=== PATIENT | male | born 1990 | race Two or more races ===

== ENCOUNTER 2023-12-28 22:04 | Emergency (ER) | payer MEDICAID, SELFPAY ==
--- NOTE | 2023-12-28 22:09 | EKG_ITS ---
[facility] Test Date: 2023-12-28 Pat Name: KARLENE WOOD Department: Room: - Gender: Male [employer]culating Process Inspector: : 1990 Requested By: Miguel Parra Order Number: [id number] Reading MD: Miguel Parra Measurements Intervals [place] Rate: 74 P: 33 DC: 194 QRS: -19 QRSD: 106 T: 17 QT: 363 QTc: 403 Interpretive Statements SINUS RHYTHM WITH SINUS ARRHYTHMIA No previous ECG available for comparison /[id number].pdf
[2023-12-28 22:38] VITALS: BP 135/72; PULSE 74; RESP 19; TEMP 36.4; O2SAT 97; BMI 29.5
--- NOTE | 2023-12-28 23:08 | XR_ITS ---
Examination: PA chest single view Technique: Upright PA chest single view Exam date and time: December 28, 2023 11:20 PM Indications: Onset chest pain today. Findings: Normal heart size Minor subsegmental atelectasis at the lung bases No pneumonia or pulmonary edema Impression: No pneumonia or pulmonary edema
--- NOTE | 2023-12-28 23:08 | PD.EDRME ---
Rapid Medical Screening Exam E Arrival date/time: 12/28/23 22:04 33M with history of alcohol abuse (today, too) presents to ED with lower chest/epigastric pain. Chief Complaint: General Adult/Misc Complain Vital signs: Vital Signs Temperature 97.6 F 12/28/23 22:38 Pulse Rate 74 12/28/23 22:38 Respiratory Rate 19 12/28/23 22:38 Blood Pressure 135/72 H 12/28/23 22:38 Pulse Oximetry (%) 97 12/28/23 22:38 Oxygen Delivery Method Room Air 12/28/23 22:38
[2023-12-29 00:01] LABS: Basophils # (Auto) 0.1 Thou/mm3 (0.0-0.2); Basophils % (Auto) 1 % (0-2.5); Eosinophils # (Auto) 0.2 Thou/mm3 (0.0-0.5); Eosinophils % (Auto) 3 % (0-10); Hematocrit 42.4 % (41.0-53.0); Hemoglobin 14.4 g/dL (13.5-16.0); Immature Granulocytes % (Auto) 0 % (0-0); Immature Granulocytes Auto 0.03 Thou/mm3 (0.00-0.00); Lymphocytes # (Auto) 2.1 Thou/mm3 (1.0-4.8); Lymphocytes % (Auto) 29 % (10-50); Mean Corpuscular Hemoglobin 32.2 pg (25.0-35.0); Mean Corpuscular Volume 95 fL (80-100); Monocytes # (Auto) 0.5 Thou/mm3 (0.0-0.8); Monocytes % (Auto) 8 % (0-12); Neutrophils # (Auto) 4.3 Thou/mm3 (1.8-7.7); Neutrophils % (Auto) 59 % (37-80); Nucleated Red Blood Cell % 0 /100 WBC (0); Platelet Count 195 Thou/mm3 (140-440); RDW Standard Deviation 44.6 fL (35.1-43.9); Red Blood Count 4.47 Miln/mm3 (4.50-5.90); White Blood Count 7.2 Thou/mm3 (3.8-10.6)
[2023-12-29 00:34] LABS: Alanine Aminotransferase 319 U/L (10-49); Albumin, Serum 4.6 gm/dL (3.5-5.0); Albumin/Globulin Ratio 1.3 (1.2-2.2); Alcohol, Blood Medical 259.9 mg/dL (0-10.0); Alkaline Phosphatase 159 U/L (46-116); Anion Gap 8 (7-16); Aspartate Amino Transferase 196 U/L (0-34); BUN/Creatinine Ratio 10 Ratio (12-20); Bilirubin,Total 0.3 mg/dL (0.3-1.2); Blood Urea Nitrogen 8 mg/dL (9-23); Calcium 9.1 mg/dL (8.3-10.6); Calcium (Corrected) 9.1 mg/dL (8.5-10.1); Carbon Dioxide 25.7 mMol/L (20.0-31.0); Chloride 107 mMol/L (98-107); Creatinine (Component) 0.8 mg/dL (0.6-1.3); Globulin 3.5 gm/dL (2.3-3.5); Glucose 104 mg/dL (74-106); Lipase 45 U/L (12-53); Osmolality,Calculated 279 (275-295); Potassium 3.6 mMol/L (3.4-5.1); Sodium 141 mMol/L (136-145); Total Protein 8.1 gm/dL (5.7-8.2); Troponin I < 0.020 ng/mL (0.0-0.045); eGFR > 60 See Note
[2023-12-29 00:52] VITALS: BP 127/84; PULSE 74; RESP 18; TEMP 36.5
[2023-12-29 02:03] VITALS: BP 136/79; PULSE 70; RESP 18; TEMP 36.8; O2SAT 96
--- NOTE | 2023-12-29 03:05 | PD.EDADULT ---
ED General RME/HPI General Chief complaint: General Adult/Misc Complain Stated complaint: CHEST AREA PAIN,SOB,ETOH Arrival date/time: 12/28/23 22:04 Limitations: no limitations RME / HPI RME / HPI narrative: 12/28/23 22:04 33M with history of alcohol abuse (today, too) presents to ED with lower chest/epigastric pain. ---- Dr. Brenner's Main ED Evaluation: 33yo male with a history of alcohol abuse presents to the ED for a chief complaint of chest pain x 2 months. Patient is unable to describe his pain, reporting he's had it for the last 2 months, but rates it a 10 out of 10 in severity. Patient reports consuming alcohol tonight, but does not quantify how much. Denies any shortness of breath or any other associated symptoms. Denies any falls or injuries. No known allergies. Related Data Allergies Allergy/AdvReac Type Severity Reaction Status Date / Time No Known Allergies Allergy Verified 12/28/23 22:07 Review of Systems Review of Systems Systems Reviewed: All systems reviewed, normal except as documented Past Medical History Past Medical History CARDIAC: Negative Congestive Heart Failure RESPIRATORY: Negative Chronic Obstructive Pulmonary Disease (COPD) GENITOURINARY: Negative Renal Disease ENDOCRINE: Negative Diabetes Mellitus Type 1 or Diabetes Mellitus Type 2 Social History SMOKING STATUS: Never smoker ED Exam General Limitations: Present no limitations General appearance: Present alert, in no apparent distress and appears intoxicated Head Head exam: Present atraumatic Eye Eye exam: Present normal appearance, PERRL and EOMI ENT ENT exam: Present normal exam, normal oropharynx and mucous membranes moist Neck Neck exam: Present normal inspection, full ROM and trachea midline Chest Chest inspection: Present normal inspection and symmetric chest wall rise Respiratory Respiratory exam: Present normal lung sounds bilaterally Cardiovascular Cardiovascular exam: Present regular rate, normal rhythm and normal heart sounds Abdominal Exam Abdominal exam: Present soft and normal bowel sounds Extremities Exam Extremities exam: Present normal inspection and full ROM Back Exam Back exam: Present normal inspection and full ROM Neurological Exam Neurological exam: Present alert, oriented X3 and CN II-XII intact Psychiatric Psychiatric exam: Present normal affect and normal mood Skin Skin exam: Present warm, dry, intact and normal color Course Course Course Narrative: CXR is ordered for determining the etiology of chest pain. Quality Measures none Orders Category Date Time Status EKG (ED ONLY) *Do not use* NOW Care 12/28/23 22:09 Completed EKG (ED Only) Stat Exams 12/28/23 22:09 Draft XR chest 1V portable Stat Exams 12/28/23 23:08 Completed Alcohol, Blood Medical Stat Lab 12/28/23 23:34 Completed CBC Stat Lab 12/28/23 23:34 Completed Comprehensive Metabolic Panel Stat Lab 12/28/23 23:34 Completed Lipase Stat Lab 12/28/23 23:34 Completed Troponin I Stat Lab 12/28/23 23:34 Completed Vital Signs Vital signs: Vital Signs Temperature 97.6 F 12/28/23 22:38 Pulse Rate 74 12/28/23 22:38 Respiratory Rate 19 12/28/23 22:38 Blood Pressure 135/72 H 12/28/23 22:38 Pulse Oximetry (%) 97 12/28/23 22:38 Oxygen Delivery Method Room Air 12/28/23 22:38 Pulse ox is 97% on room air, which is normal according to my interpretation. [facility] Patient data External records reviewed:: [facility] previous records (Per chart review, patient has no previous ED visits or admissions to this facility.) Clinical information provided by:: patient Social determinants that could affect healthcare access:: alcohol use Patient has the following chronic illnesses:: none How is presenting disease/condition affected by chronic disease/condition?: no chronic disease Evaluation data The following diagnostics were reviewed and interpreted by me:: lab results, radiology exam(s) and EKG tracing(s) Lab and/or radiology exams considered but not ordered:: none Interpretation Summary: CBC is normal, LFTs are elevated, troponin is normal, Blood alcohol is elevated at 259.9, according to my interpretation. EKG done at 2236, NSR, rate of 74, normal intervals, normal axis, no acute ST or T-wave changes, no STEMI, according to my interpretation. ----- I have personally reviewed the radiology data and agree with the radiologist's interpretation below: [facility] Report Signed Patient: KARLENE WOOD Record#: [id number] Birthdate: 1990 Age/Sex: 33 / M Location: [facility] Attending Dr: Ordering Physician: Miugel Parra PA-C Date of Service: 12/28/23 Procedure(s): XR chest 1V portable Accession Number(s): [id number] cc: Robert Page MD; NO PRIMARY/FAMILY,PHYSICIAN; Miguel Parra PA-C~ Examination: PA chest single view Technique: Upright PA chest single view Exam date and time: December 28, 2023 11:20 PM Indications: Onset chest pain today. Findings: Normal heart size Minor subsegmental atelectasis at the lung bases No pneumonia or pulmonary edema Impression: No pneumonia or pulmonary edema Dictated By: Robert Page MD Signed By: <Electronically signed by Robert Page MD in OV> 12/28/23 2679 Medications Medications considered but not ordered:: none Medication administrations:: see above, if any Consultations Consultation(s) initiated? (list below): No Diagnosis Differential Diagnosis ED Complaint MDM: alcohol intoxication, dehydration, electrolyte abnormality Most likely diagnosis given after review of the tests above:: see below Admission Indicated Admission indicated?: not indicated Explain why admission is indicated or not indicated:: Patient is stable for outpatient f/u. Admission Request Was there a request for admission?: No Disposition Plan Disposition Plan: Discharge Discharge Attestation Discharge Attestation: The patient and all family members were given an opportunity to ask questions and understood the discharge instructions. Discharge instructions specifically effects, indications for sooner follow up or return to the emergency department, and the expected course of current diagnosis. Patient condition: Stable Medical Decision Making Differential Diagnosis Differential Diagnosis: alcohol intoxication, dehydration, electrolyte abnormality Lab Data 12/28/23 23:34 12/28/23 23:34 Labs: Lab Results 12/28/23 Range/Units 23:34 WBC 7.2 (3.8-10.6) Thou/mm3 RBC 4.47 L (4.50-5.90) Miln/mm3 Hgb 14.4 (13.5-16.0) g/dL Hct 42.4 (41.0-53.0) % MCV 95 (80-100) fL MCH 32.2 (25.0-35.0) pg MCHC 34.0 (31.0-37.0) g/dl RDW Std Deviation 44.6 H (35.1-43.9) fL Plt Count 195 (140-440) Thou/mm3 Neut % (Auto) 59 (37-80) % Lymph % (Auto) 29 (10-50) % Bland % (Auto) 8 (0-12) % Eos % (Auto) 3 (0-10) % Baso % (Auto) 1 (0-2.5) % Neut # (Auto) 4.3 (1.8-7.7) Thou/mm3 Lymph # (Auto) 2.1 (1.0-4.8) Thou/mm3 Bland # (Auto) 0.5 (0.0-0.8) Thou/mm3 Eos # (Auto) 0.2 (0.0-0.5) Thou/mm3 Baso # (Auto) 0.1 (0.0-0.2) Thou/mm3 Immature Gran # (Auto) 0.03 H (0.00-0.00) Thou/mm3 Absolute Nucleated RBC 0.00 (0.00-0.00) Thou/mm3 Immature Gran % 0 (0-0) % Nucleated RBC % 0 (0) /100 WBC Sodium 141 (136-145) mMol/L Potassium 3.6 (3.4-5.1) mMol/L Chloride 107 (98-107) mMol/L Carbon Dioxide 25.7 (20.0-31.0) mMol/L Anion Gap 8 (7-16) BUN 8 L (9-23) mg/dL Creatinine 0.8 (0.6-1.3) mg/dL Estim Creat Clear Calc 139.0 (>60) mL/min eGFR > 60 (60 - ) See Note BUN/Creatinine Ratio 10 L (12-20) Ratio Glucose 104 (74-106) mg/dL Calculated Osmolality 279 (275-295) Calcium 9.1 (8.3-10.6) mg/dL Corrected Calcium 9.1 (8.5-10.1) mg/dL Total Bilirubin 0.3 (0.3-1.2) mg/dL AST 196 H (0-34) U/L ALT 319 H (10-49) U/L Alkaline Phosphatase 159 H (46-116) U/L Troponin I < 0.020 (0.0-0.045) ng/mL Total Protein 8.1 (5.7-8.2) gm/dL Albumin 4.6 (3.5-5.0) gm/dL Globulin 3.5 (2.3-3.5) gm/dL Albumin/Globulin Ratio 1.3 (1.2-2.2) Lipase 45 (12-53) U/L Ethyl Alcohol 259.9 H (0-10.0) mg/dL Discharge Plan Plan Patient Disposition: HOME (Self Care) Patient condition on transfer: Stable Prescriptions/Referrals Referrals: No Primary/Family,Physician [Primary Care Provider] - In 1 week Problem List Clinical Impression: Alcohol intoxication Patient/Caregiver Discharge Instructions Education Materials: Social Drinking vs Problem Drinking, ED Alcohol Intoxication Additional Instructions: Please return to emergency department worsening symptoms or any other concerns. You are to think about cutting back on your drinking. Print Language: Moldovan Stand Alone Forms: [employer] Award Info., Patient Portal Info Letter
== END 2023-12-29 03:36 | disposition home or self-care (01) ==
PROVIDERS: Physician Assistant; Emergency Provider Emergency Medicine
DX: F10.129 Alcohol abuse with intoxication, unspecified (principal); R07.9 Chest pain, unspecified; I49.8 Other specified cardiac arrhythmias; R79.89 Other specified abnormal findings of blood chemistry; Y90.8 Blood alcohol level of 240 mg/100 ml or more
CPT/HCPCS: 36415; 71045; 80053; 80320; 83690; 84484; 85025; 93005; 99283; G0480